=== PATIENT | female | born 1990 | race Caucasian/White ===

== ENCOUNTER 2017-07-14 18:08 | Inpatient (IN) | payer OTHER ==
[~2017-07-14] VITALS: Ht 157.5 cm; Wt 78.0 kg
[~2017-07-14 18:08] MED LIST: DOCUSATE SODIU100 MG PO; Mylicon 125MG PO; OXYC1TAB9 PO
[2017-07-14] MEDS ORDERED: INFED50 MG/ML IJ (19:41)
[2017-07-14] MEDS ORDERED: INTEGRA PLUS C1 EACH PO (19:42)
[2017-07-14] MEDS ORDERED: OBSTETRIX DHA1 EACH PO (19:42)
[2017-07-14] MEDS ORDERED: ZANTAC150 M3 PO (19:44)
[2017-08-17] MEDS ORDERED: NIFEDIPINE20 MG PO (07:34)
[2017-08-17] MEDS ORDERED: FAMOTIDINE20 MG PO (07:34)
[2017-08-17] MEDS ORDERED: PREPLUS CA-FE1 EACH PO (07:34)
[2017-08-17] MEDS ORDERED: Ferro-Plex CAPLET PO (07:35)
== END 2017-08-17 07:51 | disposition home or self-care (01) | DRG 778 ==
LOC: LDR 18:08 → OB/GYN 18:08
PROC: 4A1HXCZ Monitoring of Products of Conception, Cardiac Rate, External Approach (ICD-10-PCS; principal; 2017-07-14)
PROC: BY4FZZZ Ultrasonography of Third Trimester, Single Fetus (ICD-10-PCS; 2017-07-14)
PROC: BU4CZZZ Ultrasonography of Uterus and Ovaries (ICD-10-PCS; 2017-07-14)
PROC: BU4CZZZ Ultrasonography of Uterus and Ovaries (ICD-10-PCS; 2017-07-28)
PROC: BY4FZZZ Ultrasonography of Third Trimester, Single Fetus (ICD-10-PCS; 2017-07-28)
PROC: BY4CZZZ Ultrasonography of Second Trimester, Single Fetus (ICD-10-PCS; 2017-08-05)
PROC: BY4CZZZ Ultrasonography of Second Trimester, Single Fetus (ICD-10-PCS; 2017-08-16)
PROC: BU4CZZZ Ultrasonography of Uterus and Ovaries (ICD-10-PCS; 2017-08-16)
DX: O60.03 Preterm labor without delivery, third trimester (principal); O34.211 Maternal care for low transverse scar from previous cesarean delivery; Z3A.29 29 weeks gestation of pregnancy; O99.013 Anemia complicating pregnancy, third trimester; D50.0 Iron deficiency anemia secondary to blood loss (chronic)

== ENCOUNTER 2017-09-08 14:08 | Inpatient (IN) | payer OTHER ==
[~2017-09-08] VITALS: Ht 157.5 cm; Wt 3.2 kg
[~2017-09-08 14:08] MED LIST changes: +FAMOTIDINE20 MG PO; +Ferro-Plex CAPLET PO; +INFED50 MG/ML IJ; +INTEGRA PLUS C1 EACH PO; +NIFEDIPINE20 MG PO; +OBSTETRIX DHA1 EACH PO; +PREPLUS CA-FE1 EACH PO; +ZANTAC150 M3 PO
[2017-09-11] MEDS ORDERED: PREPLUS CA-FE1 EACH PO (08:12)
[2017-09-11] MEDS ORDERED: OXYC1TAB9 PO (08:12)
[2017-09-11] MEDS ORDERED: Mylicon 125MG PO (08:12)
[2017-09-11] MEDS ORDERED: DOCUSATE SODIU100 MG PO (08:12)
== END 2017-09-11 09:20 | DRG 766 ==
LOC: SURG-SUITE 14:08 → LDR 14:08 → O/R 19:01 → SURG-SUITE 20:15
PROVIDERS: Obstetrics & Gynecology
PROC: 4A1HXCZ Monitoring of Products of Conception, Cardiac Rate, External Approach (ICD-10-PCS; 2017-09-08)
PROC: 4A033R1 Measurement of Arterial Saturation, Peripheral, Percutaneous Approach (ICD-10-PCS; 2017-09-08)
PROC: 10D00Z1 Extraction of Products of Conception, Low, Open Approach (ICD-10-PCS; principal; 2017-09-08 17:00)
DX: O34.211 Maternal care for low transverse scar from previous cesarean delivery (principal); Z37.0 Single live birth; O99.820 Streptococcus B carrier state complicating pregnancy; N73.6 Female pelvic peritoneal adhesions (postinfective); Z3A.37 37 weeks gestation of pregnancy; O99.89 Other specified diseases and conditions complicating pregnancy, childbirth and the puerperium